=== PATIENT | female | born 1990 | race Caucasian/White ===

== ENCOUNTER 2024-03-09 19:08 | Emergency (ER) | payer MEDICAID ==
[~2024-03-09] VITALS: Ht 162.6 cm; Wt 75.0 kg
[2024-03-09] MEDS: ondansetron/PF 4mg/2ml inj IV ONE ×2 (19:50→20:03)
[2024-03-09] MEDS: normal saline 1000ML IV soln IVB ONE (20:03)
[2024-03-09 20:21] LABS: BASOPHILS % (AUTO) 0.4 % (0-1); EOSINOPHILS # (AUTO) 0.1 X10'3 (0-0.9); EOSINOPHILS % (AUTO) 1.7 % (0-6); HEMATOCRIT 40.8 % (35.0-45.0); HEMOGLOBIN 13.7 g/dl (12.0-16.0); LYMPHOCYTES # (AUTO) 2.1 X10'3 (1.1-4.8); LYMPHOCYTES % (AUTO) 23.6 % (21-51); MEAN CORPUSCULAR HEMOGLOBIN 27.3 PG (27.0-31.0); MEAN CORPUSCULAR HGB CONC 33.6 g/dL (33.0-36.5); MEAN CORPUSCULAR VOLUME 81.3 FL (78-98); MEAN PLATELET VOLUME 7.8 FL (7.4-10.4); MONOCYTES # (AUTO) 0.4 X10'3 (0-0.9); MONOCYTES % (AUTO) 4.1 % (2-12); NEUTROPHILS # (AUTO) 6.1 X10'3 (1.8-7.7); NEUTROPHILS % (AUTO) 70.2 % (42-75); PLATELET COUNT 303 X10'3 (140-440); RED BLOOD COUNT 5.02 X10'6 (4.20-5.60); RED CELL DISTRIBUTION WIDTH 14.3 % (11.5-14.5); WHITE BLOOD COUNT 8.7 X10'3 (4.5-11.0)
[2024-03-09 20:45] LABS: ALANINE AMINOTRANSFERASE 17 U/L (12-78); ALBUMIN 4.2 G/DL (3.4-5.0); ALBUMIN/GLOBULIN RATIO 1.1 (1.1-1.5); ALKALINE PHOSPHATASE 56 IU/L (46-116); ANION GAP 7 (8-16); ASPARTATE AMINO TRANSFERASE 16 U/L (10-37); BILIRUBIN,DIRECT 0.1 MG/DL (0-0.3); BILIRUBIN,TOTAL 0.6 MG/DL (0.1-1.0); BLOOD UREA NITROGEN 3 MG/DL (7-18); BUN/CREATININE RATIO 3.8 (10.0-20.0); CALCIUM 9.1 MG/DL (8.5-10.1); CHLORIDE 103 MMOL/L (99-107); CREATININE 0.78 MG/DL (0.40-0.90); GLUCOSE 102 MG/DL (70-104); LIPASE 28 U/L (16-77); POTASSIUM 3.1 MMOL/L (3.5-5.1); SODIUM 140 MMOL/L (135-145); TOTAL CARBON DIOXIDE 29.8 MMOL/L (24-32); eCRCL 89 ML/MIN; eGFR 86 ML/MIN
[2024-03-09] MEDS ORDERED: ONDA4TAB12 PO (21:17)
[2024-03-09 21:33] VITALS: BP 109/74; PULSE 87; RESP 16; TEMP 97.9; O2SAT 100
== END 2024-03-09 21:39 | disposition home or self-care (01) ==
LOC: ER 19:10
DX: K52.89 Other specified noninfective gastroenteritis and colitis (principal); Z88.1 Allergy status to other antibiotic agents; Z91.018 Allergy to other foods
CPT/HCPCS: 36415; 80048; 80076; 83690; 85025; 96361; 96374; 99283; J2405; J7030

== ENCOUNTER 2024-03-18 04:11 | Inpatient (IN) | payer MEDICAID ==
[2024-03-18] VITALS (20 sets, daily range): BP systolic 90–144; BP diastolic 47–82; PULSE 50–109; RESP 12–22; TEMP 98–98.7; O2SAT 93–100
[~2024-03-18] VITALS: Ht 162.6 cm; Wt 72.5 kg
[~2024-03-18 04:11] MED LIST: ONDA4TAB12 PO
[2024-03-18] MEDS ORDERED: ketorolac trometh. 30mg/ml inj. IV ONE (05:20)
[2024-03-18] MEDS: ondansetron/PF 4mg/2ml inj IV ONE (05:26)
[2024-03-18] MEDS: ketorolac tromethamine 15mg/ml inj. IV ONE (05:32)
[2024-03-18] MEDS ORDERED: DICY20TA17 PO (05:49)
[2024-03-18 05:50] LABS: ALANINE AMINOTRANSFERASE 21 U/L (12-78); ALBUMIN 4.1 G/DL (3.4-5.0); ALBUMIN/GLOBULIN RATIO 1.1 (1.1-1.5); ALKALINE PHOSPHATASE 50 IU/L (46-116); ANION GAP 8 (8-16); ASPARTATE AMINO TRANSFERASE 10 U/L (10-37); BILIRUBIN,TOTAL 0.4 MG/DL (0.1-1.0); BLOOD UREA NITROGEN 12 MG/DL (7-18); CALCIUM 9.8 MG/DL (8.5-10.1); CHLORIDE 103 MMOL/L (99-107); CREATININE 0.75 MG/DL (0.40-0.90); GLUCOSE 99 MG/DL (70-104); LIPASE 36 U/L (16-77); POTASSIUM 3.7 MMOL/L (3.5-5.1); SODIUM 140 MMOL/L (135-145); TOTAL CARBON DIOXIDE 28.7 MMOL/L (24-32); eCRCL 93 ML/MIN; eGFR 90 ML/MIN
[2024-03-18 06:02] LABS: BASOPHILS # (AUTO) 0.1 X10'3 (0-0.2); BASOPHILS % (AUTO) 0.9 % (0-1); EOSINOPHILS # (AUTO) 0.1 X10'3 (0-0.9); HEMATOCRIT 39.9 % (35.0-45.0); LYMPHOCYTES # (AUTO) 1.4 X10'3 (1.1-4.8); LYMPHOCYTES % (AUTO) 14.8 % (21-51); MEAN CORPUSCULAR HEMOGLOBIN 26.8 PG (27.0-31.0); MEAN CORPUSCULAR HGB CONC 32.6 g/dL (33.0-36.5); MEAN PLATELET VOLUME 8.3 FL (7.4-10.4); MONOCYTES # (AUTO) 0.5 X10'3 (0-0.9); MONOCYTES % (AUTO) 4.9 % (2-12); NEUTROPHILS # (AUTO) 7.4 X10'3 (1.8-7.7); NEUTROPHILS % (AUTO) 78.4 % (42-75); PLATELET COUNT 326 X10'3 (140-440); RED BLOOD COUNT 4.86 X10'6 (4.20-5.60); RED CELL DISTRIBUTION WIDTH 14.7 % (11.5-14.5); WHITE BLOOD COUNT 9.4 X10'3 (4.5-11.0)
[2024-03-18 06:54] LABS: URINE HCG NEGATIVE (NEG)
[2024-03-18 06:58] LABS: BILIRUBIN,URINE NEGATIVE (Neg); CLARITY,URINE CLOUDY (Clear); COLOR,URINE YELLOW (Yellow); GLUCOSE, URINE NEGATIVE (Neg); KETONES,URINE NEGATIVE (Neg); LEUKOCYTE ESTERASE ,URINE NEGATIVE (Neg); NITRITES, URINE NEGATIVE (Neg); OCCULT BLOOD,URINE NEGATIVE (Neg); PH,URINE >=9.0 (4.8-8.0); PROTEIN,URINE TRACE mg/dl (Neg); UROBILINOGEN,URINE 0.2 E.U/dL (0.2-1.0)
[2024-03-18] MEDS: CefTRIAXone 2gm/D5W 50ml BAG 50 ML IV ONE (07:05)
[2024-03-18 07:14] LABS: UA COLLECTION TYPE CLN CATCH MIDSTREAM
[2024-03-18 07:19] LABS: AMORPHOUS PHOSPHATES 4+
[2024-03-18 07:20] LABS: SQUAMOUS EPITHELIAL CELL,UR MANY /LPF (FEW)
[2024-03-18 07:22] LABS: RBC,URINE 0-2 /HPF (0-2); WBC,URINE 0-4 /HPF (0-4)
[2024-03-18 07:24] LABS: BACTERIA,URINE 1+ /HPF (Neg)
[2024-03-18 07:25] LABS: TRANSITIONAL EPI CELLS,URINE FEW /HPF
[2024-03-18] MEDS ORDERED: potassium Cl 40MEQ/1/2NS 520ml 520 ML IV PRN (08:00)
[2024-03-18] MEDS ORDERED: acetaminophen 325mg tablet PO PRN (08:00)
[2024-03-18] MEDS: docusate sod 100mg capsule PO SCH (08:00)
[2024-03-18] MEDS ORDERED: magnesium 4gm in 100ml NS 100 ML IV PRN (08:00)
[2024-03-18] MEDS ORDERED: magnesium Cl slow-release 64mg tablet PO PRN (08:00)
[2024-03-18] MEDS ORDERED: mag hydrox/Alum hydrox/simeth 30ml oral suspension PO PRN (08:00)
[2024-03-18] MEDS ORDERED: metoclopramide 5 mg/ml inj IV PRN (08:00)
[2024-03-18] MEDS ORDERED: potassium Cl 20 mEq SR tablet PO PRN (08:00)
[2024-03-18] MEDS: K and/or MAG REPLACEMENT MC SCH (08:00)
[2024-03-18] MEDS ORDERED: magnesium 2GM in 50ml NS 50 ML IV PRN (08:00)
[2024-03-18 08:26] LABS: CHOL/HDL RATIO 3.3 (0.00-4.99); CHOLESTEROL 164 MG/DL (0-200); HDL CHOLESTEROL 50 MG/DL (35-60); LDL CHOLESTEROL 106 MG/DL (50-100); MAGNESIUM 2.1 MG/DL (1.5-2.4); TRIGLYCERIDES 55 MG/DL (20-135)
[2024-03-18 08:44] LABS: HEMOGLOBIN A1C 5.6 % (4.5-6.2)
[2024-03-18] MEDS: ringers solution, lacted 1,000 ML IV SCH ×2 (09:03→18:02)
[2024-03-18] MEDS: ondansetron/PF 4mg/2ml inj IV PRN ×2 (09:54→17:32)
[2024-03-18 10:59] LABS: THYROID STIMULATING HORMONE 1.54 ulU/ml (0.34-4.50)
[2024-03-18] MEDS ORDERED: NO HOME MEDS (14:19)
[2024-03-18] MEDS ORDERED: morphine 2 MG/ML inj. syringe IV PRN (15:45)
[2024-03-18] MEDS ORDERED: labetalol 20mg/4ml (5mg/ml) syringe IV PRN (15:45)
[2024-03-18] MEDS ORDERED: hydrALAZINE 20mg/ml inj. IV PRN (15:45)
[2024-03-18] MEDS ORDERED: meperidine/PF 25mg/ml syringe IV PRN (15:45)
[2024-03-18] MEDS ORDERED: MIDAZolam 1 MG/ML 5ML VIAL ONE (15:47)
[2024-03-18] MEDS: BUPIVAcaine/PF 2.5 mg/ml (0.25%) 30ml vial IJ ONE (16:19)
[2024-03-18] MEDS ORDERED: LIDOcaine 2% (20mg/ml) 5ml vial ONE (16:58)
[2024-03-18] MEDS ORDERED: ceFOXitin 1000 MG inj ONE ×3 (16:58)
[2024-03-18] MEDS ORDERED: propofol inj 20 ML IV ONE (16:58)
[2024-03-18] MEDS ORDERED: fentaNYL /PF 50mcg/ml 5ml ampule ONE (16:58)
[2024-03-18] MEDS ORDERED: dexamethasone sod phosphate 4mg/ml inj. ONE (16:59)
[2024-03-18] MEDS ORDERED: rocuronium 10mg/ml inj IV ONE (16:59)
[2024-03-18] MEDS ORDERED: ondansetron/PF 4mg/2ml inj ONE (16:59)
[2024-03-18] MEDS ORDERED: naloxone 0.4 mg/ml inj IV PRN (17:20)
[2024-03-18] MEDS: acetaminophen 1,000mg/100ml IV 100 ML IV ONE (17:30)
[2024-03-18] MEDS: ketorolac tromethamine 15mg/ml inj. IV PRN (17:33)
[2024-03-18] MEDS: meperidine/PF 25mg/ml syringe IV PRN ×2 (17:36→17:39)
[2024-03-18] MEDS: proCHLORperazine 10 MG/2 ml inj IV PRN (17:42)
[2024-03-18] MEDS: morphine 4 MG/ML inj SYRINge IV PRN (17:46)
[2024-03-18] MEDS: BUPIVAcaine/PF 2.5mg/ml (0.25%) 10ml vial ONE (18:00)
[2024-03-18] MEDS: famotidine/PF 10 mg/ml inj IV ONE (18:00)
[2024-03-18] MEDS: midazolam 1 mg/ML 2ml injection IV ONE (18:01)
[2024-03-18] MEDS: midazolam 1 mg/ML 2ml injection ONE (18:01)
[2024-03-18] MEDS: enoxaparin 40mg/0.4ml syringe SQ SCH (20:00)
[2024-03-18] MEDS: morphine 2 MG/ML inj. syringe IV PRN (21:37)
[2024-03-19] MEDS: morphine 2 MG/ML inj. syringe IV PRN (04:37)
[2024-03-19 05:56] LABS: BASOPHILS % (AUTO) 0.3 % (0-1); EOSINOPHILS % (AUTO) 0 % (0-6); HEMATOCRIT 38.5 % (35.0-45.0); HEMOGLOBIN 12.7 g/dl (12.0-16.0); LYMPHOCYTES # (AUTO) 0.6 X10'3 (1.1-4.8); LYMPHOCYTES % (AUTO) 4.8 % (21-51); MEAN CORPUSCULAR HEMOGLOBIN 27.2 PG (27.0-31.0); MEAN CORPUSCULAR HGB CONC 32.9 g/dL (33.0-36.5); MEAN CORPUSCULAR VOLUME 82.5 FL (78-98); MEAN PLATELET VOLUME 8.3 FL (7.4-10.4); MONOCYTES # (AUTO) 0.3 X10'3 (0-0.9); MONOCYTES % (AUTO) 2.2 % (2-12); NEUTROPHILS # (AUTO) 11.5 X10'3 (1.8-7.7); NEUTROPHILS % (AUTO) 92.7 % (42-75); PLATELET COUNT 266 X10'3 (140-440); RED BLOOD COUNT 4.66 X10'6 (4.20-5.60); RED CELL DISTRIBUTION WIDTH 14.4 % (11.5-14.5); WHITE BLOOD COUNT 12.4 X10'3 (4.5-11.0)
[2024-03-19 06:05] LABS: ALANINE AMINOTRANSFERASE 34 U/L (12-78); ALBUMIN 3.7 G/DL (3.4-5.0); ALBUMIN/GLOBULIN RATIO 0.9 (1.1-1.5); ALKALINE PHOSPHATASE 54 IU/L (46-116); ANION GAP 10 (8-16); ASPARTATE AMINO TRANSFERASE 22 U/L (10-37); BILIRUBIN,TOTAL 0.7 MG/DL (0.1-1.0); BLOOD UREA NITROGEN 9 MG/DL (7-18); BUN/CREATININE RATIO 13.6 (10.0-20.0); CALCIUM 9.1 MG/DL (8.5-10.1); CHLORIDE 104 MMOL/L (99-107); CREATININE 0.66 MG/DL (0.40-0.90); GLUCOSE 118 MG/DL (70-104); MAGNESIUM 1.9 MG/DL (1.5-2.4); POTASSIUM 3.9 MMOL/L (3.5-5.1); SODIUM 140 MMOL/L (135-145); TOTAL PROTEIN 7.6 G/DL (6.4-8.2); eCRCL 106 ML/MIN; eGFR > 90 ML/MIN
[2024-03-19 06:30] VITALS: BP 97/55; PULSE 52; RESP 14; TEMP 97.8; O2SAT 100
[2024-03-19] MEDS: CefTRIAXone 2gm/D5W 50ml BAG 50 ML IV SCH (08:00)
[2024-03-19 09:48] VITALS: RESP 16
[2024-03-19 10:00] VITALS: BP 131/78; PULSE 59; RESP 16; TEMP 97.7; O2SAT 99
[2024-03-19] MEDS: metoclopramide 5 mg/ml inj IV SCH (14:59)
[2024-03-19 18:00] VITALS: BP 110/56; PULSE 83; RESP 16; TEMP 97.8; O2SAT 99
[2024-03-19 20:43] VITALS: RESP 16; O2SAT 99
[2024-03-20 05:55] LABS: BASOPHILS % (AUTO) 0.3 % (0-1); EOSINOPHILS # (AUTO) 0.5 X10'3 (0-0.9); EOSINOPHILS % (AUTO) 4.5 % (0-6); HEMATOCRIT 34.7 % (35.0-45.0); HEMOGLOBIN 11.7 g/dl (12.0-16.0); LYMPHOCYTES # (AUTO) 2.1 X10'3 (1.1-4.8); LYMPHOCYTES % (AUTO) 20.9 % (21-51); MEAN CORPUSCULAR HEMOGLOBIN 27.5 PG (27.0-31.0); MEAN CORPUSCULAR HGB CONC 33.8 g/dL (33.0-36.5); MEAN CORPUSCULAR VOLUME 81.4 FL (78-98); MEAN PLATELET VOLUME 8.7 FL (7.4-10.4); MONOCYTES # (AUTO) 0.6 X10'3 (0-0.9); MONOCYTES % (AUTO) 5.8 % (2-12); NEUTROPHILS % (AUTO) 68.5 % (42-75); PLATELET COUNT 244 X10'3 (140-440); RED BLOOD COUNT 4.26 X10'6 (4.20-5.60); RED CELL DISTRIBUTION WIDTH 14.7 % (11.5-14.5); WHITE BLOOD COUNT 10.2 X10'3 (4.5-11.0)
[2024-03-20 06:00] VITALS: BP 124/78; PULSE 77; RESP 16; TEMP 97.9; O2SAT 100
[2024-03-20 06:08] LABS: ALANINE AMINOTRANSFERASE 28 U/L (12-78); ALBUMIN 3.2 G/DL (3.4-5.0); ALBUMIN/GLOBULIN RATIO 0.9 (1.1-1.5); ALKALINE PHOSPHATASE 42 IU/L (46-116); ANION GAP 7 (8-16); ASPARTATE AMINO TRANSFERASE 13 U/L (10-37); BILIRUBIN,TOTAL 0.5 MG/DL (0.1-1.0); BLOOD UREA NITROGEN 6 MG/DL (7-18); BUN/CREATININE RATIO 8.5 (10.0-20.0); CALCIUM 8.2 MG/DL (8.5-10.1); CHLORIDE 106 MMOL/L (99-107); CREATININE 0.71 MG/DL (0.40-0.90); GLUCOSE 87 MG/DL (70-104); MAGNESIUM 1.8 MG/DL (1.5-2.4); POTASSIUM 3.3 MMOL/L (3.5-5.1); SODIUM 141 MMOL/L (135-145); TOTAL CARBON DIOXIDE 28.1 MMOL/L (24-32); TOTAL PROTEIN 6.6 G/DL (6.4-8.2); eCRCL 98 ML/MIN; eGFR > 90 ML/MIN
[2024-03-20 06:40] VITALS: RESP 16
[2024-03-20] MEDS: HYDROcodone/acetaminophen 5mg/325mg tablet PO PRN (07:05)
[2024-03-20 07:09] VITALS: RESP 19
[2024-03-20] MEDS: potassium Cl 20 mEq SR tablet PO PRN (07:21)
[2024-03-20 08:43] VITALS: BP 130/80
== END 2024-03-20 11:10 | disposition home or self-care (01) | DRG 263 ==
LOC: ER 04:12 → EEVIPCON 04:12 → ED HOLD 08:08 → SUR 3N 14:25
PROVIDERS: ADMIT Family Medicine; ATTEND Family Medicine
PROC: 8E0W4CZ Robotic Assisted Procedure of Trunk Region, Percutaneous Endoscopic Approach (ICD-10-PCS; 2024-03-18)
PROC: 0FT44ZZ Resection of Gallbladder, Percutaneous Endoscopic Approach (ICD-10-PCS; principal; 2024-03-18 15:44)
DX: K80.00 Calculus of gallbladder with acute cholecystitis without obstruction (principal); E78.5 Hyperlipidemia, unspecified; K58.9 Irritable bowel syndrome, unspecified; F31.9 Bipolar disorder, unspecified; F41.9 Anxiety disorder, unspecified; K66.0 Peritoneal adhesions (postprocedural) (postinfection); Z86.711 Personal history of pulmonary embolism; Z86.718 Personal history of other venous thrombosis and embolism; Z88.0 Allergy status to penicillin; Z91.018 Allergy to other foods; Z98.51 Tubal ligation status; Z87.891 Personal history of nicotine dependence; Z79.899 Other long term (current) drug therapy; Z88.1 Allergy status to other antibiotic agents
CPT/HCPCS: 36415; 71045; 76700; 80053; 80061; 81001; 81025; 82948; 83036; 83690; 83735; 84443; 85025; 93005; 93306; 96365; 96375; 99291; A4215; A4618; A7000; G0378; J0131; J0694; J0696; J0780; J1100; J1885; J2175; J2250; J2270; J2405; J2704; J2765; J3010; J3490; J7120

== ENCOUNTER 2024-06-19 18:31 | Emergency (ER) | payer OTHER, MEDICAID ==
[~2024-06-19] VITALS: Ht 162.6 cm; Wt 68.2 kg
[~2024-06-19 18:31] MED LIST changes: +NO HOME MEDS; -ONDA4TAB12 PO
[2024-06-19] MEDS: LORazepam 2 mg/ml vial IV ONE (18:43)
[2024-06-19] MEDS: LORazepam 1 MG tablet PO ONE ×2 (18:47→20:06)
[2024-06-19 20:48] VITALS: BP 97/66; PULSE 93; RESP 17; TEMP 97.8; O2SAT 98
== END 2024-06-19 20:50 | disposition home or self-care (01) ==
LOC: ER 18:32
DX: F41.9 Anxiety disorder, unspecified (principal); F41.0 Panic disorder [episodic paroxysmal anxiety]; Z88.1 Allergy status to other antibiotic agents; Z86.718 Personal history of other venous thrombosis and embolism; Z86.711 Personal history of pulmonary embolism; Z98.890 Other specified postprocedural states; Z98.51 Tubal ligation status
CPT/HCPCS: 99283

== ENCOUNTER 2024-07-30 04:35 | Emergency (ER) | payer OTHER, MEDICAID ==
[~2024-07-30] VITALS: Ht 162.6 cm; Wt 70.0 kg
[2024-07-30] MEDS: diphenhydrAMINE 50 mg/ml inj IV ONE ×2 (05:00→05:02)
[2024-07-30] MEDS: methylPREDNISolone sod succ/PF 40mg inj. IV SCH (05:02)
[2024-07-30] MEDS ORDERED: DIPH25CA83 PO (05:04)
[2024-07-30] MEDS ORDERED: PRED20TA PO (05:04)
[2024-07-30] MEDS ORDERED: EPIN0.3P3 IM (05:04)
[2024-07-30] MEDS ORDERED: FAMO40TA73 PO (05:05)
[2024-07-30] MEDS: methylPREDNISolone sod succ 125mg/2ml vial IV STA (05:08)
[2024-07-30] MEDS: famotidine/PF 10 mg/ml inj IV ONE (05:11)
[2024-07-30 07:14] VITALS: BP 121/78; PULSE 74; RESP 19; TEMP 98.4; O2SAT 99
== END 2024-07-30 07:22 | disposition home or self-care (01) ==
LOC: ER 04:36
DX: T78.3XXA Angioneurotic edema, initial encounter (principal); T78.1XXA Other adverse food reactions, not elsewhere classified, initial encounter; F41.9 Anxiety disorder, unspecified; Z88.1 Allergy status to other antibiotic agents; Z88.0 Allergy status to penicillin; Z79.899 Other long term (current) drug therapy; Z98.890 Other specified postprocedural states; X58.XXXA Exposure to other specified factors, initial encounter
CPT/HCPCS: 96374; 96375; 99284; J1200; J2919; J3490

== ENCOUNTER 2025-05-05 15:43 | Emergency (ER) | payer OTHER, MEDICAID ==
[~2025-05-05] VITALS: Ht 165.1 cm; Wt 65.9 kg
[~2025-05-05 15:43] MED LIST changes: +DIPH25CA83 PO; +EPIN0.3P3 IM; +FAMO40TA73 PO
[2025-05-05] MEDS: haloperidol lactate 5mg/ml inj IM ONE (15:59)
[2025-05-05 16:06] VITALS: BP 120/90; PULSE 97; RESP 15; TEMP 97.5; O2SAT 97
--- NOTE | 2025-05-05 16:12 | Physician Documentation ---
History of Present Illness ~ Stated Complaint: ANXIETY Time Seen by MD: 15:49 Primary Medical Doctor: FRANCISCO PIMENTEL That is the here this 34-year-old female that has known to this ED for recurrent anxiety attacks presents today sitting on the gurney in a rocking motion stating she is having multiple panic attacks. She says she has taken a Xanax throughout the day but reports no improvement. She denies any SI HI. Day of Onset: May 05, 2025 Medication Reconciliation Allergies: Coded Allergies: amoxicillin (Verified Allergy, Unknown, 07/30/24) Uncoded Allergies: ORANGES (Allergy, Unknown, 03/09/24) PENICILLIN (Allergy, Unknown, 03/18/24) Scheduled Epinephrine (Epipen 2-Ricky), 1 SYR IM ONCE Famotidine (Pepcid), 1 TABLET PO DAILY Scheduled PRN Diphenhydramine Hcl (Benadryl), 2 CAP PO HS PRN for allergies Miscellaneous Medications Home Med List (No Home Medications), (Reported) Past Medical History Past Medical History: Pulmonary Embolism, Deep Vein Thrombosis, *PSYCH*, Anxiety, Panic Disorder Past Surgical History: , tubal ligation, other Alcohol Use: None Review of Systems All Other Systems at this time: Reviewed and Negative Physical Exam Physical Exam General: Alert, no apparent distress. HEENT: PERRL, EOMI, no injection, moist mucous membranes. Neurologic: Oriented x4. Psychiatric: anxious appearing Skin: Normal color, warm and dry. No edema, no ecchymosis. Progress Results/Orders Results/Orders Completed Orders - TRACI MAE NP Haloperidol Lact. (Haldol) (05/05/25 15:55) Medications Received in ER Medications (Trade) Dose Ordered Sig/Marcie Route PRN Reason Start Time Stop Time Status Last Admin Dose Admin (Haldol) 5 mg ONCE ONCE IM 05/05/25 15:55 05/05/25 15:56 DC 05/05/25 15:59 5 MG Medical Decision Making Findings patietn sent home after symptoms were reported to be improved improving. Was monitored and observed in the [facility] Differential Dx:Considerations: Include: Alcohol abuse, Anxiety, Bipolar disorder, Conversion disorder, Depression, Encephaloathy, Homicidal, Panic disorder, Personality disorder, Schizophrenia, Substance abuse, Suicidal, Other Departure Disposition: 01 HOME / SELF CARE / HOMELESS Impression: Primary Impression: Anxiety attack Condition: Improved Discharge Instructions: Generalized Anxiety Disorder, Adult Referrals: NO PRIMARY CARE PROVIDER (PCP) Signature Scribe Signature: df Attestation: Scribed for Traci Mae Ice Cutter by Traci Martinez NP . 05/05/25 16:11 TRACI MAE NP May 05, 2025 16:12
== END 2025-05-05 16:34 | disposition home or self-care (01) ==
LOC: ER 15:44
DX: F41.9 Anxiety disorder, unspecified (principal); Z86.711 Personal history of pulmonary embolism; Z86.718 Personal history of other venous thrombosis and embolism; Z88.0 Allergy status to penicillin; Z98.51 Tubal ligation status
CPT/HCPCS: 96372; 99283; J1630